=== PATIENT | female | born 1985 | race Caucasian/White ===

== ENCOUNTER 2017-09-01 09:15 | Emergency (ER) | payer MEDICAID ==
[~2017-09-01] VITALS: Ht 170.2 cm; Wt 77.0 kg
[~2017-09-01 09:15] MED LIST: CALC1TAB17 PO; PREN-88 PO
[2017-09-01 12:14] LABS: BASOPHILS % 0.8 % (0.0-2.0); EOSINOPHILS % 1.4 % (0.0-5.0); HEMOGLOBIN. 13.5 g/dL (12.0-16.0); LYMPHOCYTES % 46.4 % (20.0-50.0); MEAN CORPUSCULAR HEMOGLOBIN 25.8 pg (28.0-32.0); MEAN CORPUSCULAR VOLUME 78.6 fL (81.0-99.0); MEAN PLATELET VOLUME 7.7 fl (7.4-10.4); MONOCYTES % 9.3 % (2.0-8.0); NEUTROPHILS % 42.1 % (40.0-76.0); PLATELET 229 x1000/uL (130-400); RED BLOOD CELL COUNT 5.21 mill/uL (4.2-5.4); RED CELL DISTRIBUTION WIDTH 14.8 % (11.6-14.6)
[2017-09-01 12:22] LABS: PROTHROMBIN TIME 10.6 sec (9.4-11.6)
[2017-09-01 12:33] LABS: CARBON DIOXIDE 27 mEq/L (21-32); CHLORIDE 107 mEq/L (98-107); TROPONIN I < 0.02 ng/mL (0.00-0.04)
[2017-09-01] MEDS ORDERED: MECLIZINE 25MG TABLET PO ONE (18:00)
[2017-09-01 20:40] VITALS: BP 131/78
== END 2017-09-01 20:40 | disposition home or self-care (01) ==
LOC: ER 10:08
DX: R07.9 Chest pain, unspecified (principal); R42 Dizziness and giddiness; R00.2 Palpitations; Z90.49 Acquired absence of other specified parts of digestive tract
CPT/HCPCS: 36415; 70450; 71010; 80053; 81025; 83880; 84484; 85025; 85610; 93005; 99285; Z7610; J8597